=== PATIENT | male | born 1955 | race Caucasian/White ===

== ENCOUNTER 2019-01-23 06:19 | Day surgery (SDC) | payer OTHER, MEDICARE ==
[~2019-01-23 06:19] MED LIST: Dextrose 5%-0.45% NaCl 1,000 ML IV SCH; Midazolam 1 MG/ML 2 ML SDV ONE; Sodium Chloride 0.9% 10 ML Syringe FLUSH PRN; fentaNYL 100 MCG/2 ML SDV ONE
[2019-01-23] MEDS ORDERED: Midazolam 1 MG/ML 2 ML SDV IV ONE ×5 (06:20→07:22)
[2019-01-23] MEDS ORDERED: fentaNYL 100 MCG/2 ML SDV IV ONE ×3 (06:20→07:16)
--- NOTE | 2019-01-23 14:00 | OR ---
DATE: 01/23/2019 PROCEDURE: Total colonoscopy. INSTRUMENT USED: [id number] Olympus video colonoscope. PREMEDICATIONS: Fentanyl 100 mcg intravenous, Versed 3 mg intravenous, and nasal O2 cannula. The procedure was done under pulse oximetry, BP recording, and cardiac rehab nurse. INDICATION: The patient with rectal bleeding. Colonoscopic examination is done for detection of any polypoid lesions and removal, endoscopic hemostasis therapy if needed. DESCRIPTION OF PROCEDURE: Initial rectal exam was unremarkable. Rigid anoscopy showed small internal hemorrhoids without bleeding from them. The colonoscope was passed with ease. Few scattered diverticula were noted in the distal left colon. The scope was passed with ease up to the ileocecal area. Photographs were taken of the normal-appearing cecum, identified by landmarks of appendiceal orifice and double-bulged ileocecal folds. No bleeding was noted from any of the visualized areas at the commencement of the examination. The bowel preparation was found to be adequate, [place] Peters Scale of 2. No stricture and no vascular ectasia. No large isolated ulceration seen. No evidence of diffuse inflammatory bowel disease in the form of friability, contact bleeding, or ulcerations. No polyp or tumor mass identified. Probing the proximal sides of folds and flexures, using adequate distention and clearing up the stool material, withdrawal of the scope was made. [id number] time over 6 minutes. No bleeding was noted from any of the visualized areas at the completion of the examination. IMPRESSION: 1. Internal hemorrhoids. 2. Diverticulosis. The patient tolerated the procedure well. [facility] /[id number]
--- NOTE | 2019-01-24 12:42 | LETTER ---
01/23/2019 Nathalia Resendiz, TOM [address] [place] [address] RE: RAJEEV NORTON : 1955 Dear Ms. Resendiz: Mr. Rajeev Norton had colonoscopic examination done this morning and he tolerated the procedure well. I herewith send a copy of the endoscopy note and photographs for your review. Thank you. Sincerely, [facility] /[id number]
== END 2019-01-23 09:33 | disposition home or self-care (01) ==
LOC: DL.ENDO 06:19
PROVIDERS: ATTEND Internal Medicine Gastroenterology
DX: K62.5 Hemorrhage of anus and rectum (principal); K64.8 Other hemorrhoids; K57.30 Diverticulosis of large intestine without perforation or abscess without bleeding; E11.9 Type 2 diabetes mellitus without complications; I10 Essential (primary) hypertension; E66.09 Other obesity due to excess calories; Z68.38 Body mass index [BMI] 38.0-38.9, adult; E78.5 Hyperlipidemia, unspecified; Z79.84 Long term (current) use of oral hypoglycemic drugs; Z79.899 Other long term (current) drug therapy; Z95.0 Presence of cardiac pacemaker
CPT/HCPCS: 45378; J2250; J3010; J7042